=== PATIENT | female | born 1960 | race Caucasian/White ===

== ENCOUNTER → 2023-12-14 14:28 | Outpatient (REF) | payer OTHER, SELFPAY | LOC: HWRAD 14:28 | PROVIDERS: ATTENDING PHYSICIAN Obstetrics & Gynecology; FAMILY PHYSICIAN Physician Assistant Medical | DX: Z78.0 Asymptomatic menopausal state (principal); Z12.31 Encounter for screening mammogram for malignant neoplasm of breast | CPT/HCPCS: 77063; 77067; 77080 ==

== ENCOUNTER → 2025-03-13 13:11 | Outpatient (REF) | payer OTHER, SELFPAY | LOC: HWWDC 13:11 | PROVIDERS: ATTENDING PHYSICIAN Obstetrics & Gynecology; FAMILY PHYSICIAN Physician Assistant Medical | DX: Z12.31 Encounter for screening mammogram for malignant neoplasm of breast (principal) | CPT/HCPCS: 77063; 77067 ==